=== PATIENT | male | born 1935 | race Caucasian/White ===

== ENCOUNTER 2020-10-26 21:50 | Inpatient (IN) ==
[2020-10-26 22:44] LABS: ABS Basophils 0.1 10^3/ul (0-0.2); ABS Lymphocytes 1.6 10^3/ul (1.0-4.8); ABS Monocytes 0.9 10^3/ul (0-0.8); ABS Neutrophils 9.7 10^3/ul (1.5-7.7); Eosinophil % 0.4 %; Hematocrit 39 % (42-52); Lymphocyte % 12.7 %; Mean Corpuscular HGB Conc 33 g/dL (31-36); Mean Corpuscular Hemoglobin 30 pg (27-31); Mean Corpuscular Volume 90 fL (80-94); Mean Platelet Volume 7.8 fL (7.4-10.4); Platelet Count 255 10^3/uL (150-450); Red Blood Count 4.33 10^6 /uL (4.18-5.48); Red Cell Distribution Width 15 % (10-15); White Blood Count 12.4 10^3/uL (3.5-10.8)
[2020-10-26 22:56] LABS: ALT 15 U/L (7-52); AST 18 U/L (13-39); Albumin 3.7 g/dL (3.2-5.2); Albumin/Globulin Ratio 1.2 (1-3); Alkaline Phosphatase 58 U/L (34-104); Anion Gap 7 mmol/L (2-11); BUN/Creatinine Ratio 24.4 (8-20); Blood Urea Nitrogen 30 mg/dL (6-24); CO2 Carbon Dioxide 28 mmol/L (22-32); Calcium 9.3 mg/dL (8.6-10.3); Chloride 101 mmol/L (101-111); Creatine Kinase 127 U/L (10-223); EGFR African American 67.7 (>60); EGFR Non-African American 55.9 (>60); Glucose 122 mg/dL (70-100); Potassium 4.4 mmol/L (3.5-5.0); Sodium 136 mmol/L (135-145); Total Protein 6.7 g/dL (6.4-8.9)
[2020-10-26 23:02] LABS: Troponin I 0.03 ng/mL (<0.03)
[2020-10-26] MEDS ORDERED: Iodixanol (CONTRAST) 320 MG/ML 100 ML SDV IV ONE (23:16)
[2020-10-27] MEDS ORDERED: Morphine 2 MG/ML SYRINGE IV ONE (02:10)
[2020-10-27] MEDS ORDERED: hydrALAZINE 20 mg/ml 1 ML Vial IV IV SLOW PU ONE (02:37)
[2020-10-27 02:57] LABS: Urine Appearance Clear; Urine Bilirubin Negative (Negative); Urine Blood 2+ (Negative); Urine Color Yellow; Urine Glucose Negative (Negative); Urine Ketones Negative (Negative); Urine Nitrite Negative (Negative); Urine Protein Negative (Negative); Urine Urobilinogen Negative (Negative)
[2020-10-27 03:01] LABS: Urine Bacteria Absent (Absent); Urine Red Blood Cell 3+(>10/hpf) (Absent); Urine Squamous Epithelial Cell Present (Absent); Urine White Blood Cell Absent (Absent)
[2020-10-27] MEDS ORDERED: Ondansetron 4 mg VIAL 2 MG/ML 2 ml VIAL IV PRN (03:03)
[2020-10-27] MEDS ORDERED: NS 0.9% 1000 ml BAG 1,000 ML IV SCH (03:15)
[2020-10-27] MEDS ORDERED: hydrALAZINE 20 mg/ml 1 ML Vial IV IV SLOW PU PRN (03:20)
[2020-10-27] MEDS: Heparin 5000 UNITS/ML 1 mL VIAL SUBCUT SCH ×2 (10:41→21:19)
[2020-10-27] MEDS: Docusate LIQ 100 MG/10 ML UDC PO SCH (14:47)
[2020-10-27] MEDS: Senna TAB 8.6 mg TAB PO SCH (14:47)
[2020-10-28] MEDS: Heparin 5000 UNITS/ML 1 mL VIAL SUBCUT SCH ×2 (08:08→21:01)
[2020-10-28] MEDS: Docusate LIQ 100 MG/10 ML UDC PO SCH (08:08)
[2020-10-28] MEDS: Senna TAB 8.6 mg TAB PO SCH (08:08)
[2020-10-28 08:59] LABS: ABS Basophils 0.1 10^3/ul (0-0.2); ABS Eosinophils 0.2 10^3/ul (0-0.6); ABS Lymphocytes 2.4 10^3/ul (1.0-4.8); ABS Monocytes 1.1 10^3/ul (0-0.8); Eosinophil % 1.7 %; Hematocrit 38 % (42-52); Hemoglobin 12.5 g/dL (14.0-18.0); Lymphocyte % 20.8 %; Mean Corpuscular HGB Conc 33 g/dL (31-36); Mean Corpuscular Hemoglobin 30 pg (27-31); Mean Corpuscular Volume 91 fL (80-94); Mean Platelet Volume 8.1 fL (7.4-10.4); Platelet Count 268 10^3/uL (150-450); Red Blood Count 4.18 10^6 /uL (4.18-5.48); Red Cell Distribution Width 16 % (10-15); White Blood Count 11.7 10^3/uL (3.5-10.8)
[2020-10-28] MEDS: Magnesium Hydroxide LIQ 30 ML UDC PO PRN (21:01)
[2020-10-29] MEDS: Docusate LIQ 100 MG/10 ML UDC PO SCH (09:10)
[2020-10-29] MEDS: Senna TAB 8.6 mg TAB PO SCH (09:10)
[2020-10-29] MEDS: Heparin 5000 UNITS/ML 1 mL VIAL SUBCUT SCH (09:11)
[2020-10-29] MEDS: Lidocaine PATCH 5% PATCH TRANSDERM SCH (13:36)
[2020-10-29] MEDS: Magnesium Hydroxide LIQ 30 ML UDC PO PRN (21:18)
[2020-10-29] MEDS: Enoxaparin 40 MG/0.4 ML SYR SUBCUT SCH (21:18)
[2020-10-29] MEDS: Lidocaine Patch REMOVE PATCH PATCH OFF SCH (21:24)
[2020-10-30] MEDS: Senna TAB 8.6 mg TAB PO SCH (09:08)
[2020-10-30] MEDS: Magnesium Hydroxide LIQ 30 ML UDC PO PRN ×2 (09:16→15:54)
[2020-10-30] MEDS: Lidocaine PATCH 5% PATCH TRANSDERM SCH (09:16)
[2020-10-30] MEDS ORDERED: Mineral Oil ENEMA 118 ML/BOTTLE BOTTLE PR ONE (15:30)
[2020-10-30] MEDS: Enoxaparin 40 MG/0.4 ML SYR SUBCUT SCH (20:07)
[2020-10-30] MEDS: Lidocaine Patch REMOVE PATCH PATCH OFF SCH (21:37)
[2020-10-31] MEDS: Senna TAB 8.6 mg TAB PO SCH (10:22)
[2020-10-31] MEDS: Lidocaine PATCH 5% PATCH TRANSDERM SCH (10:24)
[2020-10-31] MEDS: Enoxaparin 40 MG/0.4 ML SYR SUBCUT SCH (19:11)
[2020-10-31] MEDS: Lidocaine Patch REMOVE PATCH PATCH OFF SCH (21:17)
[2020-11-01] MEDS: Senna TAB 8.6 mg TAB PO SCH (08:52)
[2020-11-01] MEDS: Lidocaine PATCH 5% PATCH TRANSDERM SCH (08:53)
[2020-11-01] MEDS: Enoxaparin 40 MG/0.4 ML SYR SUBCUT SCH (20:50)
[2020-11-01] MEDS: Lidocaine Patch REMOVE PATCH PATCH OFF SCH (20:54)
[2020-11-02] MEDS: Lidocaine PATCH 5% PATCH TRANSDERM SCH (08:58)
[2020-11-02] MEDS: Senna TAB 8.6 mg TAB PO SCH (09:02)
[2020-11-02 10:31] VITALS: BP 157/53
== END 2020-11-02 12:40 | DRG 206 ==
LOC: ED 21:50 → MED 10-27 03:03
PROVIDERS: ADMIT Student in an Organized Health Care Education/Training Program; ATTEND Internal Medicine

== ENCOUNTER 2021-10-06 17:09 | Inpatient (IN) ==
[2021-10-06 21:13] LABS: ABS Neutrophils 5.2 10^3/ul (1.5-7.7); Eosinophil % 0.1 %; Hematocrit 40 % (42-52); Hemoglobin 13.5 g/dL (14.0-18.0); Lymphocyte % 13.8 %; Mean Corpuscular HGB Conc 34 g/dL (31-36); Mean Corpuscular Hemoglobin 32 pg (27-31); Mean Corpuscular Volume 93 fL (80-94); Platelet Count 190 10^3/uL (150-450); Red Blood Count 4.28 10^6 /uL (4.18-5.48); Red Cell Distribution Width 14 % (10-15); White Blood Count 7.2 10^3/uL (3.5-10.8)
[2021-10-06 21:21] LABS: Urine Appearance Clear; Urine Bilirubin Negative (Negative); Urine Blood 2+ (Negative); Urine Color Yellow; Urine Glucose Negative (Negative); Urine Ketones Negative (Negative); Urine Nitrite Negative (Negative); Urine Protein 1+(30 mg/dL) (Negative); Urine Specific Gravity 1.018 (1.002-1.030); Urine Urobilinogen Negative (Negative)
[2021-10-06 21:35] LABS: Potassium 3.5 mmol/L (3.5-5.0)
[2021-10-06 21:36] LABS: Albumin 3.9 g/dL (3.2-5.2); Albumin/Globulin Ratio 1.4 (1-3); C Reactive Protein 79.94 mg/L (<8.01); Globulin 2.8 g/dL (2-4); Total Bilirubin 0.6 mg/dL (0.2-1.0); Total Protein 6.7 g/dL (6.4-8.9); eGFR CKD-EPI 52.1 (>60)
[2021-10-06 21:41] LABS: Troponin I 0.03 ng/mL (<0.03)
[2021-10-06 21:43] LABS: Urine Bacteria Absent (Absent); Urine Red Blood Cell 2+(6-10/hpf) (Absent); Urine White Blood Cell Trace(0-5/hpf) (Absent)
[2021-10-07 01:06] LABS: Troponin I 0.03 ng/mL (<0.03)
[2021-10-07] MEDS ORDERED: Magnesium Hydroxide LIQ 30 ML UDC PO PRN (03:08)
[2021-10-07 05:56] LABS: Hematocrit 38 % (42-52); Hemoglobin 12.8 g/dL (14.0-18.0); Mean Corpuscular HGB Conc 33 g/dL (31-36); Mean Corpuscular Hemoglobin 31 pg (27-31); Mean Corpuscular Volume 93 fL (80-94); Mean Platelet Volume 7.9 fL (7.4-10.4); Platelet Count 195 10^3/uL (150-450); Red Blood Count 4.13 10^6 /uL (4.18-5.48); Red Cell Distribution Width 14 % (10-15); White Blood Count 9.2 10^3/uL (3.5-10.8)
[2021-10-07 06:05] LABS: INR 1.11 (0.86-1.15)
[2021-10-07] MEDS: Heparin 5000 UNITS/ML 1 mL VIAL SUBCUT SCH ×3 (06:07→22:10)
[2021-10-07 06:14] LABS: Anion Gap 11 mmol/L (2-11); Blood Urea Nitrogen 34 mg/dL (6-24); CO2 Carbon Dioxide 25 mmol/L (22-32); Calcium 9.2 mg/dL (8.6-10.3); Chloride 103 mmol/L (101-111); Glucose 95 mg/dL (70-100); Magnesium 1.7 mg/dL (1.9-2.7); Potassium 3.4 mmol/L (3.5-5.0); Sodium 139 mmol/L (135-145); eGFR CKD-EPI 48.1 (>60)
[2021-10-07 06:20] LABS: Troponin I 0.03 ng/mL (<0.03)
[2021-10-07] MEDS ORDERED: Magnesium Sulfate 2 gm BAG 2 GM/50 ML BAG IVPB ONE (07:34)
[2021-10-07] MEDS ORDERED: Potassium Chlor 20 meq TAB.ER PO ONE (08:01)
[2021-10-08 05:01] LABS: ABS Basophils 0.1 10^3/ul (0-0.2); ABS Eosinophils 0.1 10^3/ul (0-0.6); ABS Lymphocytes 1.9 10^3/ul (1.0-4.8); ABS Monocytes 1.4 10^3/ul (0-0.8); ABS Neutrophils 4.7 10^3/ul (1.5-7.7); Eosinophil % 1.7 %; Hematocrit 37 % (42-52); Hemoglobin 12.2 g/dL (14.0-18.0); Lymphocyte % 23.3 %; Mean Corpuscular HGB Conc 33 g/dL (31-36); Mean Corpuscular Hemoglobin 31 pg (27-31); Mean Corpuscular Volume 93 fL (80-94); Mean Platelet Volume 7.9 fL (7.4-10.4); Nucleated Red Blood Cells % 0.1; Platelet Count 188 10^3/uL (150-450); Red Blood Count 3.93 10^6 /uL (4.18-5.48); Red Cell Distribution Width 14 % (10-15); White Blood Count 8.2 10^3/uL (3.5-10.8)
[2021-10-08 05:19] LABS: Calcium 8.7 mg/dL (8.6-10.3); Magnesium 2.2 mg/dL (1.9-2.7); Potassium 3.3 mmol/L (3.5-5.0); eGFR CKD-EPI 47.7 (>60)
[2021-10-08] MEDS: Heparin 5000 UNITS/ML 1 mL VIAL SUBCUT SCH ×3 (06:01→22:17)
[2021-10-08] MEDS ORDERED: Potassium Chlor 20 meq TAB.ER PO ONE (07:34)
[2021-10-09] MEDS: Heparin 5000 UNITS/ML 1 mL VIAL SUBCUT SCH ×3 (06:29→22:26)
[2021-10-09 06:30] LABS: Calcium 8.9 mg/dL (8.6-10.3); Potassium 3.8 mmol/L (3.5-5.0); eGFR CKD-EPI 49.8 (>60)
[2021-10-10] MEDS: Heparin 5000 UNITS/ML 1 mL VIAL SUBCUT SCH ×2 (07:48→13:44)
[2021-10-10 12:07] VITALS: BP 124/63
== END 2021-10-10 14:30 | DRG 563 ==
LOC: ED 17:09 → SUATTDRO 10-07 03:04 → EDHOLD 10-07 06:51 → SSU 10-07 08:50
PROVIDERS: ADMIT Internal Medicine; ATTEND Hospitalist

== ENCOUNTER 2021-10-10 14:15 | Inpatient (IN) ==
[2021-10-10] MEDS ORDERED: Magnesium Hydroxide LIQ 30 ML UDC PO PRN (16:44)
[2021-10-10] MEDS ORDERED: Senna TAB 8.6 mg TAB PO PRN (16:44)
[2021-10-10] MEDS: Heparin 5000 UNITS/ML 1 mL VIAL SUBCUT SCH (22:41)
[2021-10-11] MEDS: Heparin 5000 UNITS/ML 1 mL VIAL SUBCUT SCH ×3 (05:02→21:24)
[2021-10-12] MEDS: Heparin 5000 UNITS/ML 1 mL VIAL SUBCUT SCH ×3 (05:13→22:32)
[2021-10-12 07:54] LABS: ABS Basophils 0.1 10^3/ul (0-0.2); ABS Eosinophils 0.2 10^3/ul (0-0.6); ABS Lymphocytes 2.4 10^3/ul (1.0-4.8); ABS Monocytes 0.9 10^3/ul (0-0.8); ABS Neutrophils 5.5 10^3/ul (1.5-7.7); Eosinophil % 2.6 %; Hematocrit 36 % (42-52); Hemoglobin 11.9 g/dL (14.0-18.0); Lymphocyte % 26.4 %; Mean Corpuscular HGB Conc 33 g/dL (31-36); Mean Corpuscular Hemoglobin 31 pg (27-31); Mean Corpuscular Volume 94 fL (80-94); Mean Platelet Volume 8.2 fL (7.4-10.4); Nucleated Red Blood Cells % 0.1; Platelet Count 237 10^3/uL (150-450); Red Blood Count 3.84 10^6 /uL (4.18-5.48); Red Cell Distribution Width 13 % (10-15); White Blood Count 9.1 10^3/uL (3.5-10.8)
[2021-10-12 08:31] LABS: Albumin 3.6 g/dL (3.2-5.2); Albumin/Globulin Ratio 1.3 (1-3); Calcium 9.2 mg/dL (8.6-10.3); Globulin 2.8 g/dL (2-4); Potassium 4.2 mmol/L (3.5-5.0); Total Bilirubin 0.5 mg/dL (0.2-1.0); Total Protein 6.4 g/dL (6.4-8.9); eGFR CKD-EPI 52.1 (>60)
[2021-10-13] MEDS: Heparin 5000 UNITS/ML 1 mL VIAL SUBCUT SCH ×3 (05:29→21:30)
[2021-10-14] MEDS: Heparin 5000 UNITS/ML 1 mL VIAL SUBCUT SCH ×3 (05:50→22:54)
[2021-10-15] MEDS: Heparin 5000 UNITS/ML 1 mL VIAL SUBCUT SCH ×3 (04:50→20:44)
[2021-10-16] MEDS: Heparin 5000 UNITS/ML 1 mL VIAL SUBCUT SCH ×3 (05:21→21:11)
[2021-10-17] MEDS: Heparin 5000 UNITS/ML 1 mL VIAL SUBCUT SCH ×3 (04:47→21:17)
[2021-10-18] MEDS: Heparin 5000 UNITS/ML 1 mL VIAL SUBCUT SCH ×3 (06:04→21:43)
[2021-10-19 04:21] VITALS: BP 142/70
[2021-10-19] MEDS: Heparin 5000 UNITS/ML 1 mL VIAL SUBCUT SCH (06:15)
[2021-10-19 06:51] LABS: ABS Basophils 0.1 10^3/ul (0-0.2); ABS Eosinophils 0.2 10^3/ul (0-0.6); ABS Lymphocytes 2.5 10^3/ul (1.0-4.8); ABS Monocytes 0.9 10^3/ul (0-0.8); ABS Neutrophils 5.3 10^3/ul (1.5-7.7); Eosinophil % 1.7 %; Hematocrit 36 % (42-52); Hemoglobin 12.2 g/dL (14.0-18.0); Mean Corpuscular HGB Conc 34 g/dL (31-36); Mean Corpuscular Hemoglobin 31 pg (27-31); Mean Corpuscular Volume 94 fL (80-94); Mean Platelet Volume 7.7 fL (7.4-10.4); Platelet Count 333 10^3/uL (150-450); Red Blood Count 3.89 10^6 /uL (4.18-5.48); Red Cell Distribution Width 13 % (10-15); White Blood Count 8.9 10^3/uL (3.5-10.8)
[2021-10-19 07:10] LABS: Albumin 3.7 g/dL (3.2-5.2); Albumin/Globulin Ratio 1.3 (1-3); Calcium 9.5 mg/dL (8.6-10.3); Globulin 2.9 g/dL (2-4); Potassium 4.3 mmol/L (3.5-5.0); Total Bilirubin 0.5 mg/dL (0.2-1.0); Total Protein 6.6 g/dL (6.4-8.9); eGFR CKD-EPI 47.7 (>60)
[2021-10-19 10:55] LABS: Rapid COVID-19 Molecular Undetected (Undetected)
== END 2021-10-19 12:30 | DRG 561 ==
LOC: PMRU 15:30
PROVIDERS: ADMIT Physical Medicine & Rehabilitation; ATTEND Physical Medicine & Rehabilitation

== ENCOUNTER 2022-01-25 12:03 | Inpatient (IN) ==
[2022-01-25 13:07] LABS: ABS Basophils 0.1 10^3/ul (0-0.2); ABS Monocytes 0.9 10^3/ul (0-0.8); ABS Neutrophils 6.5 10^3/ul (1.5-7.7); Eosinophil % 0.3 %; Hematocrit 39 % (42-52); Hemoglobin 12.2 g/dL (14.0-18.0); Lymphocyte % 21.4 %; Mean Corpuscular HGB Conc 32 g/dL (31-36); Mean Corpuscular Hemoglobin 29 pg (27-31); Mean Corpuscular Volume 92 fL (80-94); Nucleated Red Blood Cells % 0.1; Platelet Count 232 10^3/uL (150-450); Red Blood Count 4.22 10^6 /uL (4.18-5.48); Red Cell Distribution Width 14 % (10-15); White Blood Count 9.5 10^3/uL (3.5-10.8)
[2022-01-25 13:50] LABS: Albumin/Globulin Ratio 1.3 (1-3); Calcium 9.7 mg/dL (8.6-10.3); Potassium 4.9 mmol/L (3.5-5.0); Total Bilirubin 0.5 mg/dL (0.2-1.0); eGFR CKD-EPI 30.3 (>60)
[2022-01-25 14:26] LABS: Urine Appearance Cloudy; Urine Bilirubin Negative (Negative); Urine Blood Negative (Negative); Urine Color Yellow; Urine Glucose Negative (Negative); Urine Ketones Negative (Negative); Urine Nitrite Negative (Negative); Urine Protein Negative (Negative); Urine Urobilinogen Negative (Negative)
[2022-01-25 15:02] LABS: High Sensitivity Troponin 1 Hr 14 pg/mL (<20)
[2022-01-25 15:50] LABS: Urine Benzodiazepine Screen None Detected (None Detect); Urine Cannabinoids Screen None Detected (None Detect); Urine Opiates Screen None Detected (None Detect)
[2022-01-25] MEDS ORDERED: D5W 1/2 NS 1000 ml BAG 1,000 ML IV SCH (18:00)
[2022-01-25 18:47] LABS: TSH Ultra Thyroid Stim Horm 3.15 mcIU/mL (0.34-5.60)
[2022-01-25] MEDS ORDERED: Enoxaparin 40 MG/0.4 ML SYR SUBCUT SCH (20:00)
[2022-01-25] MEDS: Enoxaparin 30 MG/0.3 ML SYR SUBCUT SCH (20:45)
[2022-01-26 05:41] LABS: ABS Eosinophils 0.2 10^3/ul (0-0.6); ABS Lymphocytes 2.4 10^3/ul (1.0-4.8); ABS Monocytes 0.9 10^3/ul (0-0.8); ABS Neutrophils 3.7 10^3/ul (1.5-7.7); Eosinophil % 2.8 %; Hematocrit 35 % (42-52); Hemoglobin 11.3 g/dL (14.0-18.0); Lymphocyte % 33.2 %; Mean Corpuscular HGB Conc 32 g/dL (31-36); Mean Corpuscular Hemoglobin 30 pg (27-31); Mean Corpuscular Volume 92 fL (80-94); Mean Platelet Volume 8.1 fL (7.4-10.4); Platelet Count 199 10^3/uL (150-450); Red Blood Count 3.81 10^6 /uL (4.18-5.48); Red Cell Distribution Width 14 % (10-15); White Blood Count 7.3 10^3/uL (3.5-10.8)
[2022-01-26 06:07] LABS: Calcium 8.9 mg/dL (8.6-10.3); eGFR CKD-EPI 43.3 (>60)
[2022-01-26] MEDS ORDERED: Cyanocobalamin INJ 1,000 MCG/ML VIAL 1 ML VIAL IM ONE (08:00)
[2022-01-26] MEDS: Enoxaparin 30 MG/0.3 ML SYR SUBCUT SCH (20:30)
[2022-01-27 05:10] LABS: Magnesium 1.9 mg/dL (1.9-2.7)
[2022-01-27] MEDS ORDERED: Magnesium Sulfate 2 gm BAG 2 GM/50 ML BAG IVPB ONE (06:39)
[2022-01-27 09:55] LABS: HDL Cholesterol 44.4 mg/dL
[2022-01-27] MEDS ORDERED: Gadobenate (CONTRAST) 529 MG/ML 10 ML SDV IV ONE (15:23)
[2022-01-27] MEDS: Enoxaparin 30 MG/0.3 ML SYR SUBCUT SCH (21:15)
[2022-01-27 22:21] LABS: Albumin 2.9 g/dL (3.4-4.7); Albumin/Globulin Ratio 0.95; Gamma Globulin 0.9 g/dL (0.6-1.6)
[2022-01-28 05:52] LABS: Hematocrit 37 % (42-52); Mean Corpuscular HGB Conc 33 g/dL (31-36); Mean Corpuscular Hemoglobin 30 pg (27-31); Mean Corpuscular Volume 92 fL (80-94); Mean Platelet Volume 8.1 fL (7.4-10.4); Platelet Count 212 10^3/uL (150-450); Red Blood Count 4.05 10^6 /uL (4.18-5.48); Red Cell Distribution Width 14 % (10-15); White Blood Count 8.9 10^3/uL (3.5-10.8)
[2022-01-28 06:11] LABS: Potassium 4.2 mmol/L (3.5-5.0); eGFR CKD-EPI 50.2 (>60)
[2022-01-28 16:25] LABS: Urine Appearance Turbid; Urine Bilirubin Negative (Negative); Urine Blood 3+ (Negative); Urine Color Amber; Urine Glucose Negative (Negative); Urine Ketones Negative (Negative); Urine Nitrite Positive (Negative); Urine Protein 2+(100 mg/dL) (Negative); Urine Specific Gravity 1.023 (1.002-1.030); Urine Urobilinogen Negative (Negative)
[2022-01-28 16:36] LABS: Urine Bacteria 1+ (Absent); Urine Red Blood Cell 3+(>10/hpf) (Absent); Urine White Blood Cell 3+(>20/hpf) (Absent)
[2022-01-28] MEDS: cefTRIAXone 1 gm/50 mL D5W 1 GM/50 ML BAG IV SCH (16:59)
[2022-01-28] MEDS: Enoxaparin 30 MG/0.3 ML SYR SUBCUT SCH (20:19)
[2022-01-29 09:14] LABS: Hematocrit 41 % (42-52); Hemoglobin 13.2 g/dL (14.0-18.0); Mean Corpuscular HGB Conc 33 g/dL (31-36); Mean Corpuscular Hemoglobin 30 pg (27-31); Mean Corpuscular Volume 92 fL (80-94); Mean Platelet Volume 8.3 fL (7.4-10.4); Platelet Count 240 10^3/uL (150-450); Red Blood Count 4.42 10^6 /uL (4.18-5.48); Red Cell Distribution Width 14 % (10-15); White Blood Count 8.4 10^3/uL (3.5-10.8)
[2022-01-29 09:52] LABS: Potassium 4.3 mmol/L (3.5-5.0); eGFR CKD-EPI 56.6 (>60)
[2022-01-29 10:33] LABS: Calcium 9.2 mg/dL (8.6-10.3)
[2022-01-29] MEDS: cefTRIAXone 1 gm/50 mL D5W 1 GM/50 ML BAG IV SCH (17:03)
[2022-01-29] MEDS: Enoxaparin 30 MG/0.3 ML SYR SUBCUT SCH (21:03)
[2022-01-30 05:30] LABS: Potassium 4.3 mmol/L (3.5-5.0); eGFR CKD-EPI 50.7 (>60)
[2022-01-30 12:22] LABS: Rapid COVID-19 Molecular Undetected (Undetected)
[2022-01-30 12:52] VITALS: BP 136/66
[2022-01-31 20:44] LABS: Cyclic Citrullinated Pept IgG <15.6 U
== END 2022-01-30 14:12 | DRG 880 ==
LOC: ED 12:03 → EDHOLD 14:55 → MED 17:47
PROVIDERS: ADMIT Internal Medicine; ATTEND Internal Medicine

== ENCOUNTER 2022-03-25 15:46 | Observation (INO) ==
[2022-03-25 17:29] LABS: ABS Basophils 0.1 10^3/ul (0-0.2); ABS Lymphocytes 1.4 10^3/ul (1.0-4.8); ABS Monocytes 0.9 10^3/ul (0-0.8); ABS Neutrophils 10.5 10^3/ul (1.5-7.7); Eosinophil % 0.2 %; Hematocrit 42 % (42-52); Hemoglobin 13.3 g/dL (14.0-18.0); Lymphocyte % 10.9 %; Mean Corpuscular HGB Conc 32 g/dL (31-36); Mean Corpuscular Hemoglobin 28 pg (27-31); Mean Corpuscular Volume 90 fL (80-94); Mean Platelet Volume 7.9 fL (7.4-10.4); Platelet Count 283 10^3/uL (150-450); Red Blood Count 4.68 10^6 /uL (4.18-5.48); Red Cell Distribution Width 15 % (10-15)
[2022-03-25 18:12] LABS: Albumin 4.2 g/dL (3.2-5.2); Albumin/Globulin Ratio 1.4 (1-3); Calcium 9.7 mg/dL (8.6-10.3); Globulin 3.1 g/dL (2-4); Magnesium 1.9 mg/dL (1.9-2.7); Potassium 4.2 mmol/L (3.5-5.0); Total Bilirubin 0.9 mg/dL (0.2-1.0); Total Protein 7.3 g/dL (6.4-8.9); eGFR CKD-EPI 58.3 (>60)
[2022-03-25] MEDS ORDERED: NS 0.9% 1000 ml BAG 1,000 ML IV ONE (18:38)
[2022-03-25 18:55] LABS: Urine Appearance Clear; Urine Bilirubin Negative (Negative); Urine Blood 1+ (Negative); Urine Color Yellow; Urine Glucose Negative (Negative); Urine Ketones Negative (Negative); Urine Nitrite Negative (Negative); Urine Protein 1+(30 mg/dL) (Negative); Urine Specific Gravity 1.015 (1.002-1.030); Urine Urobilinogen Negative (Negative)
[2022-03-25 18:56] LABS: High Sensitivity Troponin 1 Hr 17 pg/mL (<20)
[2022-03-25 19:03] LABS: Urine Bacteria Absent (Absent); Urine Red Blood Cell 1+(3-5/hpf) (Absent); Urine White Blood Cell Trace(0-5/hpf) (Absent)
[2022-03-25 20:32] LABS: C Reactive Protein 12.2 mg/L (<8.01)
[2022-03-26] MEDS ORDERED: Lorazepam PYXIS KEY PRN (04:19)
[2022-03-26] MEDS ORDERED: LORazepam 2 mg VIAL 1 ml IV PUSH ONE (04:20)
[2022-03-26] MEDS ORDERED: Ziprasidone IM 20 mg VIAL 1 ml VIAL IM ONE (04:24)
[2022-03-26 06:36] LABS: ABS Basophils 0.1 10^3/ul (0-0.2); ABS Eosinophils 0.1 10^3/ul (0-0.6); ABS Neutrophils 6.3 10^3/ul (1.5-7.7); Eosinophil % 0.8 %; Hematocrit 38 % (42-52); Hemoglobin 12.4 g/dL (14.0-18.0); Lymphocyte % 20.8 %; Mean Corpuscular HGB Conc 33 g/dL (31-36); Mean Corpuscular Hemoglobin 30 pg (27-31); Mean Corpuscular Volume 89 fL (80-94); Platelet Count 246 10^3/uL (150-450); Red Blood Count 4.19 10^6 /uL (4.18-5.48); Red Cell Distribution Width 14 % (10-15); White Blood Count 9.4 10^3/uL (3.5-10.8)
[2022-03-26 07:01] LABS: Calcium 9.2 mg/dL (8.6-10.3); Magnesium 1.8 mg/dL (1.9-2.7)
[2022-03-26] MEDS ORDERED: Magnesium Sulfate IV 3 GM in NS 0.9% 100 ml BAG 100 ML IVPB ONE (07:20)
[2022-03-26] MEDS ORDERED: Magnesium Sulfate 2 GM IV (Premix) IVPB ONE (08:00)
[2022-03-26] MEDS ORDERED: Magnesium Sulfate 1 GM IV 1 GM/100 ML BAG IV ONE (09:00)
[2022-03-26] MEDS: Enoxaparin 40 MG/0.4 ML SYR SUBCUT SCH ×2 (09:17→20:46)
[2022-03-27 06:28] LABS: Calcium 8.7 mg/dL (8.6-10.3); Magnesium 2.4 mg/dL (1.9-2.7); Potassium 3.6 mmol/L (3.5-5.0)
[2022-03-27] MEDS: Lidocaine PATCH 5% PATCH TRANSDERM SCH (12:10)
[2022-03-27] MEDS ORDERED: Potassium Chlor 20 meq TAB.ER PO ONE (13:04)
[2022-03-27] MEDS: Enoxaparin 40 MG/0.4 ML SYR SUBCUT SCH (20:32)
[2022-03-28] MEDS: Acetaminophen IV 1 GM/100ML 100 ML IV PRN (05:29)
[2022-03-28] MEDS: Lidocaine PATCH 5% PATCH TRANSDERM SCH ×2 (09:09→09:42)
[2022-03-28] MEDS: Enoxaparin 40 MG/0.4 ML SYR SUBCUT SCH (21:32)
[2022-03-29] MEDS: Lidocaine PATCH 5% PATCH TRANSDERM SCH (09:52)
[2022-03-29] MEDS: Acetaminophen IV 1 GM/100ML 100 ML IV PRN (14:08)
[2022-03-29] MEDS: Enoxaparin 40 MG/0.4 ML SYR SUBCUT SCH (20:09)
[2022-03-30] MEDS: Lidocaine PATCH 5% PATCH TRANSDERM SCH (10:29)
[2022-03-30] MEDS: Enoxaparin 40 MG/0.4 ML SYR SUBCUT SCH (20:07)
[2022-03-30] MEDS: Acetaminophen IV 1 GM/100ML 100 ML IV PRN (23:00)
[2022-03-31] MEDS: Lidocaine PATCH 5% PATCH TRANSDERM SCH (08:55)
[2022-03-31 09:37] LABS: Rapid COVID-19 Molecular Detected (Undetected)
[2022-03-31] MEDS: Enoxaparin 40 MG/0.4 ML SYR SUBCUT SCH ×2 (18:51→18:52)
[2022-04-01 08:05] VITALS: BP 192/87
[2022-04-01] MEDS: Lidocaine PATCH 5% PATCH TRANSDERM SCH (09:42)
== END 2022-04-01 11:29 | disposition swing bed (61) ==
LOC: ED 15:46 → EDHOLD 15:46 → SUATTDRO 19:56 → MEDTELE 23:30
PROVIDERS: ADMIT Internal Medicine; ATTEND Internal Medicine

== ENCOUNTER 2022-04-01 11:35 | Inpatient (IN) ==
[2022-04-01] MEDS: Enoxaparin 40 MG/0.4 ML SYR SUBCUT SCH ×2 (20:39→20:44)
[2022-04-02] MEDS: Lidocaine PATCH 5% PATCH TRANSDERM SCH (08:18)
[2022-04-02] MEDS: Enoxaparin 40 MG/0.4 ML SYR SUBCUT SCH (21:10)
[2022-04-03] MEDS: Lidocaine PATCH 5% PATCH TRANSDERM SCH (08:59)
[2022-04-03] MEDS: Enoxaparin 40 MG/0.4 ML SYR SUBCUT SCH (20:45)
[2022-04-04] MEDS: Lidocaine PATCH 5% PATCH TRANSDERM SCH (09:51)
[2022-04-04] MEDS: Enoxaparin 40 MG/0.4 ML SYR SUBCUT SCH (20:26)
[2022-04-05] MEDS: Lidocaine PATCH 5% PATCH TRANSDERM SCH (14:23)
[2022-04-05] MEDS: Enoxaparin 40 MG/0.4 ML SYR SUBCUT SCH (21:23)
[2022-04-06] MEDS: Lidocaine PATCH 5% PATCH TRANSDERM SCH ×2 (09:20→18:19)
[2022-04-06] MEDS: Enoxaparin 40 MG/0.4 ML SYR SUBCUT SCH (19:54)
[2022-04-07] MEDS: Lidocaine PATCH 5% PATCH TRANSDERM SCH ×2 (08:35→08:46)
[2022-04-07] MEDS: Enoxaparin 40 MG/0.4 ML SYR SUBCUT SCH (22:28)
[2022-04-08] MEDS ORDERED: Dextran 70/Hypromellose Tears Eye Drops 15 ml BTL (for Artificials Tears) BOTH EYES PRN (03:51)
[2022-04-08] MEDS: Lidocaine PATCH 5% PATCH TRANSDERM SCH (09:17)
[2022-04-08] MEDS: Enoxaparin 40 MG/0.4 ML SYR SUBCUT SCH (20:52)
[2022-04-09] MEDS: Lidocaine PATCH 5% PATCH TRANSDERM SCH (09:04)
[2022-04-09] MEDS: Enoxaparin 40 MG/0.4 ML SYR SUBCUT SCH (20:14)
[2022-04-10] MEDS: Lidocaine PATCH 5% PATCH TRANSDERM SCH (09:17)
[2022-04-10] MEDS: Enoxaparin 40 MG/0.4 ML SYR SUBCUT SCH (21:08)
[2022-04-11 05:20] LABS: Hematocrit 36 % (42-52); Hemoglobin 12.4 g/dL (14.0-18.0); Mean Platelet Volume 7.8 fL (7.4-10.4); Platelet Count 261 10^3/uL (150-450)
[2022-04-11 05:51] LABS: eGFR CKD-EPI 52.5 (>60)
[2022-04-11] MEDS: Lidocaine PATCH 5% PATCH TRANSDERM SCH (10:34)
[2022-04-11] MEDS ORDERED: Senna TAB 8.6 mg TAB PO PRN (17:01)
[2022-04-11] MEDS: Enoxaparin 40 MG/0.4 ML SYR SUBCUT SCH (21:23)
[2022-04-12] MEDS: Polyethylene Glycol 3350 17 GM PACKET PO PRN (08:53)
[2022-04-12] MEDS: Lidocaine PATCH 5% PATCH TRANSDERM SCH (08:58)
[2022-04-12] MEDS: Enoxaparin 40 MG/0.4 ML SYR SUBCUT SCH (21:05)
[2022-04-13] MEDS: Polyethylene Glycol 3350 17 GM PACKET PO PRN (10:21)
[2022-04-13] MEDS: Lidocaine PATCH 5% PATCH TRANSDERM SCH (10:21)
[2022-04-13] MEDS: Enoxaparin 40 MG/0.4 ML SYR SUBCUT SCH (21:45)
[2022-04-14] MEDS: Lidocaine PATCH 5% PATCH TRANSDERM SCH (09:32)
[2022-04-14] MEDS: Enoxaparin 40 MG/0.4 ML SYR SUBCUT SCH (20:35)
[2022-04-14] MEDS: Polyethylene Glycol 3350 17 GM PACKET PO SCH (20:36)
[2022-04-15] MEDS: Lidocaine PATCH 5% PATCH TRANSDERM SCH (09:56)
[2022-04-15] MEDS: Enoxaparin 40 MG/0.4 ML SYR SUBCUT SCH (23:54)
[2022-04-15] MEDS: Polyethylene Glycol 3350 17 GM PACKET PO SCH (23:54)
[2022-04-16] MEDS: Lidocaine PATCH 5% PATCH TRANSDERM SCH (08:25)
[2022-04-16] MEDS: Enoxaparin 40 MG/0.4 ML SYR SUBCUT SCH (20:21)
[2022-04-16] MEDS: Polyethylene Glycol 3350 17 GM PACKET PO SCH (20:31)
[2022-04-17] MEDS: Lidocaine PATCH 5% PATCH TRANSDERM SCH (11:59)
[2022-04-17 12:36] LABS: Rapid COVID-19 Molecular Undetected (Undetected)
[2022-04-17 15:39] LABS: Calcium 8.9 mg/dL (8.6-10.3); Potassium 4.1 mmol/L (3.5-5.0); eGFR CKD-EPI 50.7 (>60)
[2022-04-17] MEDS: Enoxaparin 40 MG/0.4 ML SYR SUBCUT SCH (22:41)
[2022-04-17] MEDS: Polyethylene Glycol 3350 17 GM PACKET PO SCH (22:42)
[2022-04-18 06:30] LABS: Hematocrit 36 % (42-52); Hemoglobin 12.1 g/dL (14.0-18.0); Mean Platelet Volume 7.7 fL (7.4-10.4); Platelet Count 242 10^3/uL (150-450)
[2022-04-18 07:15] LABS: eGFR CKD-EPI 52.5 (>60)
[2022-04-18] MEDS: Lidocaine PATCH 5% PATCH TRANSDERM SCH (11:30)
[2022-04-18] MEDS: Polyethylene Glycol 3350 17 GM PACKET PO SCH (21:26)
[2022-04-18] MEDS: Enoxaparin 40 MG/0.4 ML SYR SUBCUT SCH (21:28)
[2022-04-18 23:01] VITALS: BP 154/77
== END 2022-04-18 23:16 | disposition left against medical advice (07) | DRG 884 ==
LOC: MEDTELE 11:35 → SUATTDRO 11:46 → MEDTELE 04-06 15:59
PROVIDERS: ADMIT Internal Medicine; ATTEND Internal Medicine